=== PATIENT | female | born 1980 | race Caucasian/White ===

== ENCOUNTER 2019-11-26 05:11 | Day surgery (SDC) | payer BC, OTHER ==
[~2019-11-26] VITALS: Ht 157.5 cm; Wt 66.2 kg
[2019-11-26] MEDS ORDERED: LACTATED RINGERS 1,000 ML IV SCH (06:10)
[2019-11-26] MEDS ORDERED: NONE PER PT (06:11)
[2019-11-26 06:13] VITALS: BP 101/68
[2019-11-26 06:23] LABS: MICROSCOPIC NOT IND
[2019-11-26 06:30] LABS: CULTURE INDICATED? NO
[2019-11-26 06:30] LABS: BASOPHILS # (AUTO) 0.03 x10^3/uL (0-0.1); BASOPHILS % (AUTO) 0 % (0-1); EOSINOPHILS # (AUTO) 0.12 x10^3/uL (0-0.4); EOSINOPHILS % (AUTO) 2 % (1-7); LYMPHOCYTES # (AUTO) 1.93 x10^3/uL (1-3.4); LYMPHOCYTES % (AUTO) 24 % (22-44); MD NO; MEAN CORPUSCULAR HEMOGLOBIN 29.2 pg (27.0-34.8); MEAN CORPUSCULAR HGB CONC 33.8 g/dL (32.4-35.8); MEAN CORPUSCULAR VOLUME 86.2 fL (80-100); MEAN PLATELET VOLUME 7.7 fL (7.4-10.4); MONOCYTES # (AUTO) 0.59 x10^3/uL (0.2-0.8); MONOCYTES % (AUTO) 8 % (2-9); NEUTROPHILS # (AUTO) 5.27 x10^3/uL (1.8-6.8); NEUTROPHILS % (AUTO) 66 % (42-75); PLATELET COUNT 316 x10^3/uL (130-400); RED BLOOD COUNT 4.85 x10^6/uL (3.82-5.3); RED CELL DISTRIBUTION WIDTH 12.6 % (9.6-15.2)
[2019-11-26] MEDS ORDERED: BUPIVACAINE/PF 0.25% ONE (06:36)
[2019-11-26] MEDS ORDERED: SILVER NITRATE STICK TP ONE (06:36)
[2019-11-26] MEDS ORDERED: EPINEPHRINE 1 MG/ML, 1ML ONE (06:36)
[2019-11-26 06:43] LABS: ALANINE AMINOTRANSFERASE 17 U/L (12-78); ALBUMIN 3.4 g/dL (3.4-5.0); ANION GAP 7 mmol/L (5-15); CALCIUM 8.5 mg/dL (8.5-10.1); CHLORIDE 111 mmol/L (98-107)
[2019-11-26 06:47] LABS: ALKALINE PHOSPHATASE 79 U/L (45-117); BILIRUBIN,TOTAL 0.2 mg/dL (0.2-1.0); TOTAL PROTEIN 7.1 g/dL (6.4-8.2)
[2019-11-26] MEDS ORDERED: FENTANYL PF 100 MCG/2ML ONE (06:57)
[2019-11-26] MEDS ORDERED: LABETALOL 5MG/ML, 20ML IV PRN (07:00)
[2019-11-26] MEDS ORDERED: HYDROmorphone 2 MG/ML, 1ML IVPush PRN (07:00)
[2019-11-26] MEDS ORDERED: OXYcodone 5 MG/5 ML ORAL.SOL UDC PO PRN (07:00)
[2019-11-26] MEDS ORDERED: ACETAMINOPHEN 500 MG TABLET PO ONE (07:00)
[2019-11-26] MEDS ORDERED: PROMETHAZINE 25 MG/ML, 1ML IV PRN (07:00)
[2019-11-26] MEDS ORDERED: hydrALAzine 20 MG/ML, 1ML IV PRN (07:00)
[2019-11-26] MEDS ORDERED: GABAPENTIN 300 MG CAPSULE PO ONE (07:00)
[2019-11-26] MEDS ORDERED: HALOPERIDOL 5 MG/ML IV PRN (07:00)
[2019-11-26] MEDS ORDERED: MEPERIDINE/PF 25MG/ML,1ML IVPush PRN (07:00)
[2019-11-26] MEDS ORDERED: FENTANYL PF 100 MCG/2ML IV PRN (07:00)
[2019-11-26] MEDS ORDERED: CEFAZOLIN 1,000 MG ONE (07:38)
[2019-11-26] MEDS ORDERED: ONDANSETRON 2MG/ML, 2ML ONE (07:38)
[2019-11-26] MEDS ORDERED: DEXAMETHASONE 4 MG/ML, 1ML ONE (07:38)
[2019-11-26] MEDS ORDERED: PROPOFOL 10 MG/ML, 20ML ONE (07:38)
[2019-11-26] MEDS ORDERED: SUGAMMADEX 200 MG/2 ML IVPush ONE (10:29)
== END 2019-11-26 09:25 | disposition home or self-care (01) ==
LOC: OUT 05:11
PROVIDERS: ATTEND Obstetrics & Gynecology
DX: N93.9 Abnormal uterine and vaginal bleeding, unspecified (principal); D25.0 Submucous leiomyoma of uterus; N80.0 Endometriosis of uterus; F19.90 Other psychoactive substance use, unspecified, uncomplicated; Z98.890 Other specified postprocedural states; Z79.899 Other long term (current) drug therapy; Z79.01 Long term (current) use of anticoagulants; Z88.8 Allergy status to other drugs, medicaments and biological substances
CPT/HCPCS: 36415; 58561; 80053; 81003; 84702; 85025; 86850; 86900; 88305; J0690; J1100; J2405; J2704; J3010; J7120; J0171; J3490